=== PATIENT | female | born 1940 | race Caucasian/White ===

== ENCOUNTER → 2021-02-27 | Outpatient (CLI) | payer OTHER ==
[~2021-02-27] MED LIST: BACTRIM DS TAB1 EACH PO; METFORMIN HCL500 MG PO; PRAVACHOL20 MG PO
== END ==
LOC: M.ULTRA 07:47
PROVIDERS: ATTEND Family Medicine
DX: K80.20 Calculus of gallbladder without cholecystitis without obstruction (principal)

== ENCOUNTER → 2021-03-10 | Outpatient (CLI) | payer OTHER | LOC: M.LAB 12:36 | PROVIDERS: ATTEND Surgery | DX: K80.20 Calculus of gallbladder without cholecystitis without obstruction (principal); Z20.822 Contact with and (suspected) exposure to COVID-19 ==